=== PATIENT | female | born 1985 | race African-American/Black ===

== ENCOUNTER 2019-01-11 00:29 | Emergency (ER) | payer SELFPAY ==
[~2019-01-11] VITALS: Ht 170.2 cm; Wt 83.0 kg
[2019-01-11 00:50] VITALS: BP 132/60
[2019-01-11] MEDS ORDERED: NAPR-683 PO (01:16)
[2019-01-11] MEDS ORDERED: METH4TAB2 PO (01:16)
--- NOTE | 2019-01-11 01:17 | PHYS DOC ---
Adult General Chief Complaint Chief Complaint: UPPER EXTREMITY PAIN HPI HPI Patient is a 33 year old right-handed female who presents with complaining of right wrist pain. Patient complaining of right wrist pain for 2 months as a constant pain after lifting wait that getting gradually worse. Patient com plaining of marked edema of her wrist for the last couple days and increasing of her pain and rated her pain 9/10. Patient states she took [id number] pain medication without improvement of her condition. Patient denies injuries and history of the same problem in other joints. Review of Systems Review of Systems Constitutional: Denies fever or chills [] Eyes: Denies change in visual acuity, redness, or eye pain [] HENT: Denies nasal congestion or sore throat [] Respiratory: Denies cough or shortness of breath [] Cardiovascular: No additional information not addressed in HPI [] GI: Denies abdominal pain, nausea, vomiting, bloody stools or diarrhea [] : Denies dysuria or hematuria [] Musculoskeletal: Denies back pain or joint pain [] Integument: Denies rash or skin lesions [] Neurologic: Denies headache, focal weakness or sensory changes [] Endocrine: Denies polyuria or polydipsia [] All other systems were reviewed and found to be within normal limits, except as documented in this note. Physical Exam Physical Exam Constitutional: Well developed, well nourished, mild distress, non-toxic appearance. [] HENT: Normocephalic, atraumatic. Eyes: PERRLA, EOMI, conjunctiva normal, no discharge. [] Neck: Normal range of motion, no tenderness, supple, no stridor. [] Cardiovascular:Heart rate regular rhythm, no murmur [] Lungs & Thorax: Bilateral breath sounds clear to auscultation [] Extremities: Right wrist without deformity, mild edema, no contusion or erythema, painful range of motion, no neurovascular deficit. Neurologic: Alert and oriented X 3, normal motor function, normal sensory function, no focal deficits noted. [] Psychologic: Affect normal, judgement normal, mood normal. [] EKG EKG [] Radiology/Procedures Radiology/Procedures [] Course & Med Decision Making Course & Med Decision Making Evaluation of patient in ER showed 33-year-old female patient with complaining of chronic right wrist pain for 2 months that getting worse. Patient had mild edema without neurovascular deficit or sign of injury. Plan to apply Gerson wrap and give prescription for Medrol Dosepak and Naprosyn. patient was advised to follow-up with her primary care physician for chronic pain. Dragon Disclaimer Dragon Disclaimer This electronic medical record was generated, in whole or in part, using a voice recognition dictation system. Departure Departure Impression: Primary Impression: Right wrist pain Disposition: HOME, SELF-CARE (at 0114) Condition: STABLE Referrals: NO PCP (PCP) Patient Instructions: Wrist Sprain with [facility] Additional Instructions: Apply ice on right wrist Follow-up with your primary care physician in 3-5 days Return to ER if not getting better Scripts Naproxen (NAPROSYN) 500 Mg Tablet 1 TAB PO BID for pain, #20 TAB Prov: TAMMIE GILLIAM MD 01/11/19 Methylprednisolone (MEDROL) 4 Mg Tab.ds.pk 1 PKG PO UD for inflammation, #1 PKG Prov: TAMMIE GILLIAM MD 01/11/19 TAMMIE GILLIAM MD Jan 11, 2019 01:17
== END 2019-01-11 01:30 | disposition home or self-care (01) ==
LOC: ER 00:29
DX: M25.531 Pain in right wrist (principal)
CPT/HCPCS: 99283